=== PATIENT | male | born 1985 | race Caucasian/White ===

== ENCOUNTER 2018-11-23 16:09 | Emergency (ER) | payer OTHER ==
[~2018-11-23] VITALS: Ht 167.6 cm; Wt 68.0 kg
[~2018-11-23 16:09] MED LIST: AGRYLIN0.5 MG PO; HYDROCODONE BIT1 T11 PO; MULTI-DAY1 TAB PO; [UNRECOGNIZED DRUG - OTHER] PO
[2018-11-23 16:45] LABS: HEMATOCRIT 36.6 % (42.0-52.0); HEMOGLOBIN 11.6 g/dl (14.0-18.0); MEAN CELL VOLUME 65.2 fl (80.0-94.0); MEAN CORPUSCULAR HGB 20.7 pg (27.0-31.0); MEAN CORPUSCULAR HGB CONC 31.7 g/dl (33.0-37.0); MEAN PLATELET VOLUME 11.3 fl (9.6-12.3); NUCLEATED RED BLOOD CELL 0.3 10*3/uL (0.0-0.0); NUCLEATED RED BLOOD CELL 1.6 % (0.0-0.0); PLATELET COUNT AUTOMATED 494 10*3/uL (130-400); RED BLOOD COUNT 5.61 10*6/uL (4.50-5.90); RED CELL DISTRI WIDTH 18.2 % (0-14.5); WHITE BLOOD COUNT 16.3 10*3/uL (4.8-10.8)
[2018-11-23 16:56] LABS: BUN 16 mg/dl (7-24); CHLORIDE 102 mmol/L (98-107); CREATININE 0.75 mg/dL (0.70-1.30); POTASSIUM 3.8 mmol/L (3.5-5.1); SODIUM 138 mmol/L (136-145)
[2018-11-23 17:08] LABS: BASOPHILS 3 % (0-1); TARGET CELLS MODERATE; TOTAL CELLS COUNTED 100 #CELLS
[2018-11-23 17:09] LABS: ACANTHOCYTES FEW; PLATELET SUFFICIENCY HIGH (NORMAL); SCHISTOCYTES OCCASIONAL
[2018-11-24 08:08] LABS: HOWELL-JOLLY BODIES FEW; MICROCYTOSIS MODERATE
== END 2018-11-23 18:15 | disposition short-term general hospital (02) ==
LOC: ED 16:09
PROVIDERS: Emergency Medicine
DX: S06.0X1A Concussion with loss of consciousness of 30 minutes or less, initial encounter (principal); Z79.899 Other long term (current) drug therapy; W22.8XXA Striking against or struck by other objects, initial encounter; Y93.89 Activity, other specified; Y92.094 Garage of other non-institutional residence as the place of occurrence of the external cause; Y99.8 Other external cause status

== ENCOUNTER 2019-02-21 21:46 | Emergency (ER) | payer OTHER ==
[~2019-02-21] VITALS: Ht 167.6 cm; Wt 68.0 kg
[2019-02-21] MEDS ORDERED: ANAPROX DS550 MG PO (23:11)
== END 2019-02-21 23:57 | disposition home or self-care (01) ==
LOC: ED 21:46
DX: R07.89 Other chest pain (principal); R07.81 Pleurodynia; F17.200 Nicotine dependence, unspecified, uncomplicated; Z79.899 Other long term (current) drug therapy

== ENCOUNTER 2022-06-01 10:31 | Emergency (ER) | payer OTHER ==
[~2022-06-01] VITALS: Ht 167.6 cm; Wt 70.3 kg
[~2022-06-01 10:31] MED LIST changes: +ANAPROX DS550 MG PO
[2022-06-01] MEDS ORDERED: Motrin,Rufen800 MG PO (16:26)
== END 2022-06-01 16:33 | disposition home or self-care (01) ==
LOC: ED 10:31
DX: R09.1 Pleurisy (principal)

== ENCOUNTER 2022-11-28 09:28 | Emergency (ER) | payer OTHER ==
[~2022-11-28] VITALS: Ht 167.6 cm; Wt 70.3 kg
[~2022-11-28 09:28] MED LIST changes: +Motrin,Rufen800 MG PO
== END 2022-11-28 11:36 | disposition home or self-care (01) ==
LOC: ED 09:28
DX: M25.531 Pain in right wrist (principal); J45.909 Unspecified asthma, uncomplicated; D64.9 Anemia, unspecified; Z91.041 Radiographic dye allergy status; Z98.890 Other specified postprocedural states

== ENCOUNTER → 2022-12-21 | Outpatient (CLI) | payer OTHER | LOC: MRI 00:57 | PROVIDERS: ATTEND Orthopaedic Surgery | DX: M25.431 Effusion, right wrist (principal); M25.531 Pain in right wrist ==